=== PATIENT | female | born 1950 | race Caucasian/White ===

== ENCOUNTER 2019-06-08 13:00 | Outpatient (RCR) | payer MEDICARE, OTHER, SELFPAY ==
[2019-06-03] VITALS (9 sets, daily range): BP systolic 96–129; BP diastolic 62–74; PULSE 123–136; RESP 14–20; TEMP 36.7–37.6; O2SAT 97–100
[2019-06-03 10:38] LABS: Hematocrit 21.9 % (37.0-47.0)
[2019-06-03 10:48] LABS: Hemoglobin 6.3 g/dL (12.0-15.0)
[2019-06-03] MEDS: ACETAMINOPHEN 325 MG TABLET 650 MG PO (12:13)
[2019-06-03] MEDS: FUROSEMIDE INJ 40 MG/4 ML VIAL 20 MG IV PUSH (14:10)
[2019-06-08] VITALS (9 sets, daily range): BP systolic 102–132; BP diastolic 57–76; PULSE 89–104; RESP 16; TEMP 36.6–37.4; O2SAT 96–100
[2019-06-08] MEDS: ACETAMINOPHEN 325 MG TABLET 650 MG PO (14:20)
[2019-06-08] MEDS: FUROSEMIDE INJ 40 MG/4 ML VIAL 20 MG IV PUSH (17:21)
--- NOTE | 2019-06-08 19:34 | PC.NURSE ---
1325: ARRIVES TO [facility] FOR ORDERED BLOOD TRANSFUSION OF 2 UNITS PRBC'S. PORT A CATH R. CHEST ALREADY ACCESSED FROM [facility] VISIT THIS AM. AT SIDE. DENIES PAIN OR SOB.
== END 2019-09-01 23:59 | disposition home or self-care (01) ==
LOC: ANHCPCTRAN 13:00
PROVIDERS: PCP Nurse Practitioner Adult Health; Visit Provider Internal Medicine Hematology & Oncology
DX: C82.97 Follicular lymphoma, unspecified, spleen (principal); D64.9 Anemia, unspecified; C82.38 Follicular lymphoma grade IIIa, lymph nodes of multiple sites
CPT/HCPCS: 36415; 36430; 85014; 85018; 86850; 86900; 86901; 86920; 86923; 96374; A9270; J1940; J7050; P9016

== ENCOUNTER 2019-12-08 08:34 | Outpatient (CLI) | payer MEDICARE, OTHER, SELFPAY ==
--- NOTE | ~2019-12-08 | CT_ITS ---
EXAMINATION: CT abdomen pelvis w con INDICATION: Follicular lymphoma TECHNIQUE: Computed tomographic images of the abdomen and pelvis were obtained after the administrati on of 100 cc of Omnipaque 350 intravenous contrast. The dose-length product (DLP) was 1375.49 mGy-cm. Automated exposure control and iterative reconstruction technique were employed. COMPARISON: 05/05/2019 FINDINGS: Minimal dependent atelectasis is present in the lung bases. The heart size is normal. The s pleen remains mildly enlarged measuring 13.9 cm but is decreased in size, previously measuring 21 cm. The liver, pancreas, and adrenal glands are normal. Stones are present in the nondistended gallbladd er. A small sliding hiatal hernia is noted. No pathologically enlarged abdominal or pelvic lymph node s are identified. There is no free intraperitoneal gas or evidence of bowel obstruction. There has be en interval resolution of the previously described haziness of the small bowel mesentery. There are f at-containing inguinal hernias. Lumbar levoscoliosis is noted. There is severe lumbar spondylosis. IMPRESSION: 1. Interval resolution of haziness of the small bowel mesentery and decreased size of the spleen, lik angel related to treatment response. No pathologically enlarged lymph nodes identified. 2. Cholelithiasis without evidence of cholecystitis. Reviewed, dictated and finalized at location A. IMPRESSION: 1. Interval resolution of haziness of the small bowel mesentery and decreased s ize of the spleen, likely related to treatment response. No pathologically enla rged lymph nodes identified. 2. Cholelithiasis without evidence of cholecystitis.
[2019-12-08 09:36] LABS: Estimated Glomerular Filt Rate > 60
== END 2019-12-08 08:35 | disposition home or self-care (01) ==
LOC: ANHIMG 08:37
PROVIDERS: PCP Nurse Practitioner Adult Health; Visit Provider Internal Medicine Hematology & Oncology
DX: C82.38 Follicular lymphoma grade IIIa, lymph nodes of multiple sites (principal); K80.20 Calculus of gallbladder without cholecystitis without obstruction
CPT/HCPCS: 36415; 74177; Q9967

== ENCOUNTER → 2020-05-30 07:43 | Outpatient (CLI) | payer MEDICARE, OTHER, SELFPAY ==
--- NOTE | ~2020-05-30 | MR_ITS ---
EXAMINATION: MR lumbar spine wo con EXAM DATE: 05/30/2020 08:27 INDICATION: Degeneration of lumbar intervertebral disc low back pain. TECHNIQUE: Multi-sequential, multiplanar MR images of the lumbar spine were obtained without contrast . Sagittal T1, T2, T2 fat saturation images. Axial T2 weighted images. There is no prior study for comparison. FINDINGS: There is moderate to severe thoracolumbar levoscoliosis. There is mild to moderate disc dis ease at L3-4, moderate at the other lumbar levels. There is 3 mm retrolisthesis L5 on S1. Paraspinal soft tissue is unremarkable. The conus medullaris terminates at the L1/2 level and has normal signal intensity and morphology. There are no suspicious marrow signal abnormalities. Level by level evaluation: T12-L1: There is a mild to moderate diffuse disc bulge. Facet arthropathy: Mild to moderate. Neural foraminal stenosis: Mild bilateral. Central canal stenosis: Mild. L1-L2: There is a mild diffuse disc bulge. Facet arthropathy: Mild to moderate. Neural foraminal stenosis: Mild to moderate right, mild left. Central canal stenosis: Mild. L2-L3: There is a mild diffuse disc bulge. Facet arthropathy: Mild to moderate. Neural foraminal stenosis: Mild to moderate right. Central canal stenosis: Mild. L3-L4: There is a mild to moderate diffuse disc bulge. Facet arthropathy: Moderate to severe right, mild to moderate left macro flavum. Neural foraminal stenosis: Mild bilateral. Central canal stenosis: Mild to moderate. L4-L5: There is a mild to moderate diffuse disc bulge. Facet arthropathy: Moderate to severe left, moderate right macro flavum. Neural foraminal stenosis: Mild to moderate left, mild right. Central canal stenosis: Moderate, particularly left lateral recess. L5-S1: There is a mild diffuse disc bulge. Facet arthropathy: Moderate left, mild right. Neural foraminal stenosis: Moderate left, mild right. Central canal stenosis: No stenosis. IMPRESSION: 1. Overall moderate lumbar spondylosis, central canal most narrowed at the L4-5 level. 2. Moderate to severe thoracolumbar levoscoliosis. Reviewed, dictated and finalized at location B. 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 Overall moderate lumbar spondylosis, central canal most narrowed at the L4- 5 level. 2. Moderate to severe thoracolumbar levoscoliosis.
== END ==
PROVIDERS: PCP Nurse Practitioner Adult Health; Visit Provider Nurse Practitioner Adult Health
DX: M51.36 Other intervertebral disc degeneration, lumbar region (principal); M47.896 Other spondylosis, lumbar region
CPT/HCPCS: 72148